=== PATIENT | female | born 1975 | race Caucasian/White ===

== ENCOUNTER 2025-08-04 15:28 | Outpatient (CLI) | payer BC, OTHER | END 2025-08-04 15:29 | disposition home or self-care (01) | LOC: CSHULT 15:28 | PROVIDERS: ATTEND Family Medicine | DX: E04.2 Nontoxic multinodular goiter (principal) | CPT/HCPCS: 76536 ==

== ENCOUNTER 2025-08-18 14:40 | Outpatient (CLI) | payer BC, OTHER | END 2025-08-18 14:41 | disposition home or self-care (01) | LOC: CSHMAMMO 14:40 | PROVIDERS: ATTEND Family Medicine | DX: Z12.31 Encounter for screening mammogram for malignant neoplasm of breast (principal) | CPT/HCPCS: 77063; 77067 ==